=== PATIENT | male | born 1935 | race Caucasian/White ===

== ENCOUNTER 2022-07-22 08:40 | Inpatient (IN) | payer OTHER ==
[~2022-07-22] VITALS: Ht 193 cm; Wt 108.9 kg
[2022-07-22 08:40] VITALS: BP 171/89
--- NOTE | 2022-07-22 08:40 | NUR ---
PT ROMEO BROUSSARD, VIA GURNEY TO BED 12.
--- NOTE | 2022-07-22 09:05 | NUR ---
86 Y/O MALE BIBA C/O RIGHT HIP PAIN AFTER MECHANICAL FALL AT HOME, PER PT HE SLIPPED ON A STEP AND FELL, NOTED SKIN TEAR ON THE RIGHT ARM, AND FOREHEAD NKA PMH: PACEMAKER, SKIN CA Addendum: 07/22/22 at 1140 by MNURBMD PMH: Kayla MACKAY, PACEMAKER 6 YEARS, NEUROPATHY
--- NOTE | 2022-07-22 09:06 | NUR ---
PT TAKEN TO XRAY VIA C[facility]
[2022-07-22] MEDS ORDERED: APIX5TAB PO (09:07)
--- NOTE | 2022-07-22 10:00 | NUR ---
DR RUGGIERO AT BEDSIDE FOR EVAL
[2022-07-22] MEDS ORDERED: MORPHINE SULFATE 4 MG/ML SYR IVP ONE (10:15)
--- NOTE | 2022-07-22 10:36 | NUR ---
BLOOD URINE AND SWAB HANDED TO JIMENA DANCE CHOREOGRAPHER
--- NOTE | 2022-07-22 10:49 | NUR ---
PT TAKEN TO CT VIA [facility]
[2022-07-22] MEDS ORDERED: SACU1TAB PO (11:26)
[2022-07-22] MEDS ORDERED: GABA300C PO (11:26)
[2022-07-22] MEDS ORDERED: AMIO200T66 PO (11:26)
[2022-07-22] MEDS ORDERED: ACET-10509 PO (11:26)
[2022-07-22] MEDS ORDERED: CARV25TA PO (11:26)
[2022-07-22] MEDS ORDERED: CELE200C PO (11:26)
[2022-07-22 11:32] LABS: APPEARANCE,URINE CLEAR (CLEAR); BILIRUBIN,URINE NEGATIVE (NEGATIVE); BLOOD, URINE NEGATIVE (NEGATIVE); COLOR,URINE YELLOW (YELLOW); LEUKOCYTE ESTERASE ,URINE NEGATIVE (NEGATIVE); NITRITE, URINE NEGATIVE (NEGATIVE); PH,URINE 7.5 (5.0-9.0); UGLUCOSE NEGATIVE (NEGATIVE)
[2022-07-22 11:34] LABS: BASOPHILS # (AUTO) 0.1 K/uL (0.00-0.22); BASOPHILS % (AUTO) 0.6 % (0.0-2.0); EOSINOPHILS # (AUTO) 0.2 K/uL (0-0.4); EOSINOPHILS % (AUTO) 2.3 % (0.0-4.0); HEMATOCRIT 41.9 % (36-52); LYMPHOCYTES # (AUTO) 0.5 K/uL (2.0-11.5); MEAN CORPUSCULAR HEMOGLOBIN 33 pg (27-31); MEAN CORPUSCULAR HGB CONC 33 g/dL (33-37); MEAN CORPUSCULAR VOLUME 97.5 fL (80-94); MONOCYTES # (AUTO) 0.6 K/uL (0.8-1.0); NEUTROPHILS # (AUTO) 9.1 K/uL (1.8-7.7); NEUTROPHILS % (AUTO) 86.1 % (42.2-75.2); PLATELET COUNT (AUTO) 214 K/uL (140-450); RED CELL DISTRIBUTION WIDTH 14.3 % (11.6-13.7); WHITE BLOOD COUNT (AUTO) 10.6 K/uL (4.8-10.8)
[2022-07-22 11:46] LABS: ALBUMIN 3.6 g/dL (3.4-5.0); ANION GAP 16.2 (8-16); ASPARTATE AMINOTRANSFERASE 19 U/L (15-37); CARBON DIOXIDE 24.9 mmol/L (21-32); CHLORIDE 104 mmol/L (98-107); CREATININE 1.6 mg/dL (0.6-1.3); GLUCOSE 99 mg/dL (74-106); POTASSIUM 4.1 mmol/L (3.5-5.1); SODIUM SERUM 141 mmol/L (136-145); TOTAL BILIRUBIN 2.9 mg/dL (0.0-1.0); UREA NITROGEN, BLOOD 28 mg/dL (7-18)
--- NOTE | 2022-07-22 11:57 | NUR ---
PT RESTING IN BED
[2022-07-22 13:15] LABS: PROTHROMBIN TIME 11.5 secs (10.8-13.4)
[2022-07-22] MEDS ORDERED: ZOLPIDEM 5 MG TAB PO PRN (13:45)
[2022-07-22] MEDS ORDERED: hydrALAZINE 20 MG/ML VIAL IVP PRN (13:45)
[2022-07-22] MEDS ORDERED: ONDANSETRON 4 MG/2 ML VIAL IM/IVP PRN (13:45)
[2022-07-22] MEDS ORDERED: guaiFENesin DM 200/20 MG-10 ML 10 ML UDC PO PRN (13:45)
[2022-07-22] MEDS ORDERED: DOCUSATE SODIUM 100 MG GELCAP PO PRN (13:45)
[2022-07-22] MEDS ORDERED: ACETAMINOPHEN 325 MG TAB PO PRN (13:45)
--- NOTE | 2022-07-22 13:52 | NUR ---
Patient will be admitted to care of DR ECHEVERRIA. Admited to MED SURG. Will go to [id number]. Belongings list completed. Report to GIANCARLO ORTIZ.
[2022-07-22 14:07] LABS: MAGNESIUM 1.9 mg/dL (1.8-2.4); PHOSPHORUS 2.4 mg/dL (2.5-4.9)
--- NOTE | 2022-07-22 14:34 | NUR ---
RECEIVE REPORT FROM ER NURSE FOR NEW ADMITTED PATIENT WHO IS S/P FALL WITH R. HIP FRACTURE. PATIENT IS FULL CODE, WITH NKA, ALERT X 4 AND MEDICAL HX IS OBTAINED FROM EITHER ER NURSE OR PATIENT THAT PATIENT HAS HX OF NEUROPATH, AICD PLACEMENT, SKIN CANCER. IV AT LAC 20G SALINE LOCK, PATIENT IS ON 2 LITER O2 PRN VIA NC. WILL CONTINUE TO MONITOR
[2022-07-22 16:00] VITALS: BP 144/76
[2022-07-22] MEDS ORDERED: ACETAMINOPHEN EXTRA STRENGTH 500 MG TAB PO PRN (16:15)
[2022-07-22] MEDS: lisinopriL 10 MG TAB PO SCH (17:10)
--- NOTE | 2022-07-22 18:00 | NUR ---
P.T. NOTES HOLD P.T. EVAL, WILL AWAIT ORTHO CONSULT.
--- NOTE | 2022-07-22 19:35 | NUR ---
ENDORSE PATIENT TO PM SHIFT NURSE WHILE PATIENT REST IN BED, PIV LAC SALINE LOCK, PATIENT STILL NPO STATUS FOR POSSIBLE PROCEDURE
--- NOTE | 2022-07-22 19:36 | NUR ---
RECEIVED ENDORSEMENT FROM GIANCARLO ORTIZ, PATIENT WAS STABLE DURING SHIFT REPORT. PATIENT IS ASLEEP IN BED BUT EASY TO AROUSE BY CALLING HIS NAME. PATIENT WAS ABLE TO VERBALIZE WHY HE WAS IN THE HOSPITAL. NURSING GAVE EDUCATION TO WHY HE IS ON NPO STATUS. PATIENT UNDERSTOOD AND AGREED. [email or web address]
[2022-07-22 20:00] VITALS: BP 140/72
--- NOTE | 2022-07-22 20:00 | NUR ---
Patient's Plan of Care was discussed and reviewed with [employer]: smooth couch
[2022-07-22] MEDS: GABAPENTIN 300 MG CAP PO SCH (20:22)
[2022-07-22] MEDS: carvediloL 12.5 MG TAB PO SCH (20:24)
--- NOTE | 2022-07-22 21:45 | NUR ---
PATIENT NOTED IN BED ASLEEP. CHEST RISING AND FALLING WITHOUT INCIDENT. NO NOTED PAIN/DISCOMFORT AT THIS TIME. SIDE RAILS UP X 3 FOR SAFETY AND ADJUSTMENTS. CALL LIGHT WITHIN REACH. [email or web address]
[2022-07-22] MEDS: HYDROcodone/APAP 7.5/325 MG 1 TAB PO PRN (23:26)
--- NOTE | 2022-07-22 23:50 | NUR ---
PATIENT COMPLAINED OF LEG PAIN AND ORAL PRN WAS GIVEN. NO NOTED SIDE EFFECTS AT THIS TIME. NURSING WILL REVIEW IN ONE HOUR TIME. [email or web address]
--- NOTE | 2022-07-23 01:30 | NUR ---
PATIENT IN BED ASLEEP. NURSING NOTED CHEST RISING AND FALLING WITHOUT INCIDENT. NO NOTED S/S OF PAIN/DISCOMFORT AT THIS TIME. CALL LIGHT IN REACH FOR ASSISTANCE. [email or web address]
[2022-07-23 04:00] VITALS: BP 132/68
[2022-07-23] MEDS: MORPHINE SULFATE 2 MG/ML SYR IVP PRN ×2 (04:49→12:19)
[2022-07-23 05:31] LABS: BASOPHILS % (AUTO) 0.3 % (0.0-2.0); EOSINOPHILS % (AUTO) 0.4 % (0.0-4.0); HEMOGLOBIN 12.5 g/dL (12.0-18.0); LYMPHOCYTES # (AUTO) 0.6 K/uL (2.0-11.5); LYMPHOCYTES % (AUTO) 6.4 % (20.5-51.1); MEAN CORPUSCULAR HEMOGLOBIN 34 pg (27-31); MEAN CORPUSCULAR HGB CONC 34 g/dL (33-37); MEAN CORPUSCULAR VOLUME 98.8 fL (80-94); MONOCYTES % (AUTO) 10.8 % (1.7-9.3); NEUTROPHILS # (AUTO) 7.6 K/uL (1.8-7.7); NEUTROPHILS % (AUTO) 82.1 % (42.2-75.2); PLATELET COUNT (AUTO) 190 K/uL (140-450); RED BLOOD CELL COUNT(AUTO) 3.74 MIL/uL (4.20-6.10); RED CELL DISTRIBUTION WIDTH 14.5 % (11.6-13.7); WHITE BLOOD COUNT (AUTO) 9.2 K/uL (4.8-10.8)
[2022-07-23 05:47] LABS: ANION GAP 11.5 (8-16); CARBON DIOXIDE 28.9 mmol/L (21-32); CHLORIDE 105 mmol/L (98-107); CREATININE 1.5 mg/dL (0.6-1.3); GLUCOSE 114 mg/dL (74-106); POTASSIUM 4.4 mmol/L (3.5-5.1); SODIUM SERUM 141 mmol/L (136-145); UREA NITROGEN, BLOOD 29 mg/dL (7-18)
--- NOTE | 2022-07-23 05:49 | NUR ---
PATIENT WAS RELUCTANT TO MOVE TO BE CLEANED BUT HE WAS SATURATED WITH URINE. PATIENT WAS MEDICATED PRIOR TO ANY MOVEMENT AND WE WENT HIS SPEED. PATIENT TOLERATED IT MODERATELY. WASHED HIM DOWN. CHANGED THE DRAW SHEET AND DISPOSABLE CHUX. BED WAS PLACED IN [place] POSITION TO SLIDE UP WITHOUT DISTURBING HIS RIGHT LEG TOO MUCH. SIDE RAILS UP X 2 CALL LIGHT WITHIN REACH. [email or web address]
--- NOTE | 2022-07-23 06:58 | NUR ---
ENDORSED PATIENT TO GIANCARLO RN, PATIENT WAS STABLE DURING THE CHANGE OF SHIFT. [email or web address]
--- NOTE | 2022-07-23 07:46 | NUR ---
RECEIVE ENDORSEMENT FROM PM SHIFT NURSE WHILE PATIENT REST IN BED, PIV LAC 20G SALINE LOCK. NPO FOR PROCEDURE. WILL CONTINUE TO MONITOR
[2022-07-23 08:00] VITALS: BP 138/76
[2022-07-23 08:25] LABS: BARBITURATE, URINE NEGATIVE ng/ml (NEG <=200); BENZODIAZEPINE, URINE NEGATIVE ng/mL (NEG <=200); CANNABINOID, URINE NEGATIVE ng/mL (NEG <=50); COCAINE, URINE NEGATIVE ng/mL (NEG <=300); OPIATE, URINE POSITIVE ng/mL (NEG <=2000); PHENCYCLIDINE SCREEN,URINE NEGATIVE ng/mL (NEG <=25)
--- NOTE | 2022-07-23 08:37 | NUR ---
NURSE BRING CONSENT FOR CT ABDOMEN/PELVIS W/ CONTRAST TO PATIENT AND ASKING PATIENT'S SIGNATURE FOR PROCEDURE. PATIENT IS VERY FRUSTRATE FOR HAS NO FOOD AFTER ADMIT TO HOSPITAL AND WANTS HAVING PROCEDURE AFTER SURGERY DONE. AT THIS POINT OF TIME PATIENT DOESN'T WANT SIGN CONSENT FOR CT W/ CONTRAST. WILL CONTINUE TO MONITOR.
--- NOTE | 2022-07-23 09:17 | NUR ---
PATIENT HAS BEEN SCREENED AND CATEGORIZED MODERATE NUTRITION RISK. PATIENT WILL BE SEEN WITHIN 3-5 DAYS OF ADMISSION. 07/23/22-07/27/[address] REVIEWED BY [address]IN [address]
[2022-07-23] MEDS: AMIODARONE 200 MG TAB PO SCH (09:50)
[2022-07-23] MEDS: GABAPENTIN 300 MG CAP PO SCH ×2 (09:52→21:56)
[2022-07-23] MEDS: lisinopriL 10 MG TAB PO SCH (09:52)
[2022-07-23] MEDS: carvediloL 12.5 MG TAB PO SCH ×2 (09:54→21:00)
[2022-07-23] MEDS: HYDROcodone/APAP 7.5/325 MG 1 TAB PO PRN ×2 (10:09→15:20)
--- NOTE | 2022-07-23 13:00 | NUR ---
SCREEN FOR LOW RUPAL SCALE AT RISK, CONTINUE TO FOLLOW PRESSURE ULCER PREVENTION INTERVENTIONS. -TURN AND REPOSITION PATIENT Q 2H, ASSIST IF NEEDED -ASSESS AND MONITOR SKIN CONDITION DURING POSITION CHANGES -OFFLOAD BILATERAL HEELS BY PLACING PILLOWS UNDER CALVES AT ALL TIMES, UNLESS OTHERWISE CONTRAINDICATED -PRESSURE REDISTRIBUTION BY PLACING PILLOWS AND OFFLOADING SACRALCOCCYX -KEEP SKIN CLEAN AND DRY AT ALL TIMES.
--- NOTE | 2022-07-23 13:55 | NUR ---
ATTEMPTED TO SEE PATIENT FOR PHYSICAL THERAPY EVALUATION HOWEVER PATIENT AWAITING SURGERY SCHEDULED LATE AFTERNOON TODAY. WILL FOLLOW UP TOMORROW FOR EVALUATION.
[2022-07-23] MEDS ORDERED: TRANEXAMIC ACID 1,000 MG/10 ML VIAL ONE ×3 (16:54→18:54)
[2022-07-23] MEDS ORDERED: LIDOCAINE MPF 1% 20 ML ONE (16:54)
[2022-07-23] MEDS ORDERED: BUPIVACAINE MPF 0.25% 10 ML VIAL INJ ONE (16:54)
[2022-07-23] MEDS ORDERED: ceFAZolin 2,000 MG VIAL ONE (16:55)
[2022-07-23] MEDS ORDERED: fentaNYL citrate 0.05 MG/ML VIAL ONE ×2 (17:12→18:16)
[2022-07-23] MEDS ORDERED: METOCLOPRAMIDE 10 MG/2 ML INJ VIAL ONE (17:15)
[2022-07-23] MEDS ORDERED: DEXAMETHASONE 4 MG/ML VIAL ONE (17:15)
[2022-07-23] MEDS ORDERED: PROPOFOL 200 MG/20 ML VIAL IV ONE (17:16)
[2022-07-23] MEDS ORDERED: ACETAMINOPHEN 100 ML IV ONE (17:47)
[2022-07-23] MEDS ORDERED: ONDANSETRON 4 MG/2 ML VIAL ONE (18:44)
--- NOTE | 2022-07-23 19:12 | NUR ---
ENDORSE PT TO PM SHIFT NURSE WHILE PATIENT STILL IN OR FOR ORIF PROCEDURE. PIV LAC 20G; CT SCAN ABDOMEN/PELVIS W/O CONTRAST DONE BEFORE PROCEDURE.
[2022-07-23] MEDS ORDERED: HYDROmorphone 1 MG/ML AMP IVP PRN (19:30)
[2022-07-23] MEDS ORDERED: ONDANSETRON 4 MG/2 ML VIAL IVP PRN (19:30)
--- NOTE | 2022-07-23 19:50 | NUR ---
RECD. REPORT FROM OR NURSE, PT. S/P RIGHT HIP ORIF. AWAKE, ALERT, CONFUSED AND COOPERATIVE. INCISION IN THE RIGHT HIP COVERED WITH DRESSING DRY AND INTACT. RESPIRATION EVEN AND UNLABORED. REORIENTED PATIENT TO HOSPITAL SETTING. STILL REFUSING TO PUT ON HOSPITAL GOWN AND TRYING TO PULL OUT IV. VS STABLE. -BP - 100/58, HR -71, RR- 18, 02 SAT -97. DENIES PAIN 0/10.
[2022-07-23 20:00] VITALS: BP 100/58
--- NOTE | 2022-07-23 20:00 | NUR ---
Patient's Plan of Care was discussed and reviewed with JT SUE:
--- NOTE | 2022-07-23 21:00 | NUR ---
SON TEODORA CAME BACK REQUESTED TO STAY FOR A WHILE UNTIL PATIENT CALM DOWN.
--- NOTE | 2022-07-23 21:56 | NUR ---
REFUSING TO TAKE MEDICATIONS BUT SON PERSUADED PATIENT, OBEYED SON.
--- NOTE | 2022-07-23 22:50 | NUR ---
IV PULLED OUT. NEW IV LINE INSERTED BY ANGEL DUVAL AT THE LEFT AC G20.
--- NOTE | 2022-07-23 22:55 | NUR ---
INFORMED DR. MAGUIRE PT BP - 85/53, HR - 70, ASYMPTOMATIC. PATIENT IS SALINE LOCK IF WE CAN GIVE IV FLUIDS. ORDERED NS AT 80 ML/HR.
--- NOTE | 2022-07-23 23:15 | NUR ---
SLEEPING COMFORTABLY IN BED, SON LEFT FOR HOME.
[2022-07-23] MEDS ORDERED: ceFAZolin 1,000 MG VIAL ONE (23:24)
[2022-07-24] MEDS: NACL 0.9% 1,000 ML IV SCH ×2 (00:16→12:31)
--- NOTE | 2022-07-24 01:00 | NUR ---
SLEEPING COMFORTABLY IN BED. RESPIRATION EVEN AND UNLABORED.
--- NOTE | 2022-07-24 03:30 | NUR ---
WOKE UP, ASSISTED TO USE THE URINAL TO VOID, VOIDED 240 ML DARK YELLOW CLEAR URINE. WENT BACK TO SLEEP AFTER VOIDING.
[2022-07-24 04:00] VITALS: BP 116/59
[2022-07-24] MEDS ORDERED: ceFAZolin 1,000 MG VIAL ONE (05:03)
[2022-07-24] MEDS ORDERED: cephALEXin 500 MG CAP ONE (05:13)
--- NOTE | 2022-07-24 07:00 | NUR ---
CONDITION REMAIN STABLE. WILL ENDORSE TO AM SHIFT NURSE FOR CONTINUITY OF CARE.
[2022-07-24 07:21] LABS: HEMATOCRIT 31.9 % (36-52); HEMOGLOBIN 10.6 g/dL (12.0-18.0); LYMPHOCYTES # (AUTO) 0.3 K/uL (2.0-11.5); LYMPHOCYTES % (AUTO) 2.3 % (20.5-51.1); MEAN CORPUSCULAR HEMOGLOBIN 33 pg (27-31); MEAN CORPUSCULAR HGB CONC 33 g/dL (33-37); MEAN CORPUSCULAR VOLUME 99.2 fL (80-94); MONOCYTES # (AUTO) 0.8 K/uL (0.8-1.0); NEUTROPHILS # (AUTO) 11.5 K/uL (1.8-7.7); NEUTROPHILS % (AUTO) 91.7 % (42.2-75.2); PLATELET COUNT (AUTO) 178 K/uL (140-450); RED BLOOD CELL COUNT(AUTO) 3.21 MIL/uL (4.20-6.10); WHITE BLOOD COUNT (AUTO) 12.6 K/uL (4.8-10.8)
[2022-07-24 07:38] LABS: CARBON DIOXIDE 26.5 mmol/L (21-32); CHLORIDE 104 mmol/L (98-107); CREATININE 1.9 mg/dL (0.6-1.3); GLUCOSE 155 mg/dL (74-106); POTASSIUM 4.5 mmol/L (3.5-5.1); SODIUM SERUM 139 mmol/L (136-145); UREA NITROGEN, BLOOD 41 mg/dL (7-18)
[2022-07-24 08:00] VITALS: BP 104/57
[2022-07-24] MEDS: AMIODARONE 200 MG TAB PO SCH ×2 (09:00→09:47)
[2022-07-24] MEDS: lisinopriL 10 MG TAB PO SCH ×2 (09:00→09:49)
[2022-07-24] MEDS: GABAPENTIN 300 MG CAP PO SCH ×3 (09:00→20:37)
[2022-07-24] MEDS ORDERED: ERGOCALCIFEROL 50,000 IU SGL PO SCH (09:00)
[2022-07-24] MEDS: carvediloL 12.5 MG TAB PO SCH ×3 (09:00→20:44)
--- NOTE | 2022-07-24 10:10 | NUR ---
0900 MEDS: PT VERBALIZED THAT HE WILL NOT TAKE ANY MEDS UNTIL HE READS "[facility]". PT INSISTS HE ALREADY GOT HIS A.M. MEDS. MONOGRAPHS FOR ALL HIS DAY MEDS PRINTED AND GIVEN TO HIM.
--- NOTE | 2022-07-24 11:21 | NUR ---
PT REQUESTED "SOMETHING WITH ORDER NUMBERS" FOR HIS MEDS. PT GIVEN MEDICATION LIST WITH PT NAME, , AND ALLERGIES AT TOP OF PAGE. ACTIVE MEDS SHOWED MED NAME, MED FREQUENCIES, MED DOSAGES, MED DOSAGE TIMES, AND MED ROUTES.
[2022-07-24 16:00] VITALS: BP 92/42
--- NOTE | 2022-07-24 17:03 | NUR ---
PHYSICAL THERAPIST HERE TO WORK W PT. PT HAS AN ORDER FOR 30%WEIGHT BEARING FOR RIGHT LEG W FWW.
--- NOTE | 2022-07-24 19:47 | NUR ---
RECEIVED ENDORSEMENT FROM PATIENT FROM JOSEPH RN, PATIENT WAS STABLE. PATIENT ALERT AND ORIENTED X 3. PATIENT HAD MOMENTS OF CONFUSION BY STATING HE HAS THE WRONG MEDICATION. PATIENT WAS GIVEN EDUCATION REGARDING THE CURRENT MEDICATION THAT HE IS ASSIGNED AND THE INFORMATION CAN BE GIVEN TO HIS PRIMARY PHYSICIAN AT DISCHARGE. PATIENT IS SITTING UP IN BED WITH CALL LIGHT WITHIN REACH. SIDE RAILS X 3 FOR SAFETY AND REPOSITIONING. BED AT THE LOWEST LEVEL. SURGICAL SITE IS INTACT. NO COMPLAINTS OF PAIN/DISCOMFORT. NO NOTED RESPIRATORY DISTRESS AT THIS TIME. [email or web address]
[2022-07-24 20:00] VITALS: BP 99/49
--- NOTE | 2022-07-24 20:00 | NUR ---
Patient's Plan of Care was discussed and reviewed with OPERATIONS ANALYST: NOVA VALDEZ
[2022-07-24] MEDS: cephALEXin 500 MG CAP PO SCH (20:44)
[2022-07-24] MEDS ORDERED: QUEtiapine FUMARATE 25 MG TAB PO SCH (21:00)
--- NOTE | 2022-07-24 21:57 | NUR ---
PATIENT WAS NOTED KNOTTING OFF TO SLEEP. NURSING ASK TO TURN DOWN THE LIGHT FOR SLEEP. PATIENT AGREED. PATIENT CONTINUES TO DENY ANY PAIN/ DISCOMFORT AT THIS TIME. PATIENT WAS KEPT CLEAN AND DRY. PATIENT REFUSED ORAL ANTIBIOTIC. NURSING GAVE EDUCATION ON THE BENEFITS OF ANTIBIOTIC AND NOT TO STOP THEM ABRUPTLY AND PATIENT UNDERSTOOD BUT STILL DECLINED. [email or web address]
--- NOTE | 2022-07-24 22:41 | NUR ---
NO NOTED IVPB TO ENDORSE TO COVERING RN AJ ORTIZ. [email or web address]
--- NOTE | 2022-07-24 23:26 | NUR ---
PATIENT IN BED ASLEEP. CHEST NOTED RISING AND FALLING WITHOUT RESPIRATORY DISTRESS. NO NOTED S/S OF PAIN/DISCOMFORT. SIDE RIALS UP X 3 FOR SAFETY AND ADJUSTMENT. CALL LIGHT WITHIN REACH. [email or web address]
[2022-07-25] MEDS: NACL 0.9% 1,000 ML IV SCH (00:50)
--- NOTE | 2022-07-25 01:24 | NUR ---
PATIENT IN BED ASLEEP CHEST NOTED RISING AND FALLING WITHOUT INCIDENT. [email or web address]
--- NOTE | 2022-07-25 03:52 | NUR ---
PATIENT IS EASE TO AROUSE WHEN NAME IS CALLED. NO NOTED S/S OF PAIN. NO NOTED S/S OF RESPIRATORY DISTRESS. PATIENT REMAINS CLEAN AND DRY. SIDE RAILS UP X 3 FOR SAFETY AND COMFORT. BED AT LOWEST LEVEL. SEMI GOMEZ POSITION. CALL LIGHT WITHIN REACH. [email or web address]
[2022-07-25 04:00] VITALS: BP 103/55
[2022-07-25] MEDS: cephALEXin 500 MG CAP PO SCH (05:00)
--- NOTE | 2022-07-25 05:33 | NUR ---
NURSING CHECKED VITAL SIGNS FOR PRN MEDICATION BECAUSE PATIENT WILL BE CHANGED FOR GOWN AND ANY SOILED LINEN. SIDE RAILS UP X 3 FOR SAFETY. PATIENT DENIES PAIN AT THIS TIME. NURSING WILL SEEK ASSISTANCE FROM FITNESS FLOOR ATTENDANT FOR ROTATING THE PATIENT IN THE BED. CALL LIGHT WITHIN REACH. [email or web address]
[2022-07-25 06:37] LABS: BASOPHILS % (AUTO) 0.1 % (0.0-2.0); EOSINOPHILS # (AUTO) 0.2 K/uL (0-0.4); EOSINOPHILS % (AUTO) 1.9 % (0.0-4.0); HEMATOCRIT 25.4 % (36-52); HEMOGLOBIN 8.9 g/dL (12.0-18.0); LYMPHOCYTES # (AUTO) 0.4 K/uL (2.0-11.5); LYMPHOCYTES % (AUTO) 4.4 % (20.5-51.1); MEAN CORPUSCULAR HEMOGLOBIN 34 pg (27-31); MEAN CORPUSCULAR HGB CONC 35 g/dL (33-37); MONOCYTES % (AUTO) 10.6 % (1.7-9.3); NEUTROPHILS # (AUTO) 7.7 K/uL (1.8-7.7); PLATELET COUNT (AUTO) 168 K/uL (140-450); RED CELL DISTRIBUTION WIDTH 13.8 % (11.6-13.7); WHITE BLOOD COUNT (AUTO) 9.3 K/uL (4.8-10.8)
[2022-07-25 06:51] LABS: ANION GAP 12.2 (8-16); CARBON DIOXIDE 25.7 mmol/L (21-32); CHLORIDE 106 mmol/L (98-107); CREATININE 1.8 mg/dL (0.6-1.3); GLUCOSE 119 mg/dL (74-106); POTASSIUM 3.9 mmol/L (3.5-5.1); SODIUM SERUM 140 mmol/L (136-145); UREA NITROGEN, BLOOD 43 mg/dL (7-18)
--- NOTE | 2022-07-25 07:28 | NUR ---
ENDORSED PATIENT CARE TO JOSEPH RN FOR CONTINUITY OF CARE. PATIENT WAS STABLE AT THE CHANGE OF SHIFT. [email or web address]
[2022-07-25] MEDS: GABAPENTIN 300 MG CAP PO SCH (09:00)
[2022-07-25] MEDS: carvediloL 12.5 MG TAB PO SCH (09:00)
[2022-07-25] MEDS: AMIODARONE 200 MG TAB PO SCH (09:00)
[2022-07-25] MEDS ORDERED: DOCU-299 PO (10:54)
[2022-07-25] MEDS ORDERED: CEPH-588 PO (10:54)
[2022-07-25] MEDS ORDERED: QUET25TA46 PO (10:54)
--- NOTE | 2022-07-25 11:41 | NUR ---
DC PLANNING: PATIENT HAS A DC ORDER TO GO [facility] FOR PHYSICAL THERAPY. PATIENT IS ACCEPTED AT [facility] CAN GO TO ROOM 120A AWAITING FOR AUTHORIZATION. CM TO FOLLOW Addendum: 07/25/22 at 1405 by Abimbola Larry RN DC PLANNING: SPOKE WITH PT AND PT'S DAUGHTER STATED PREFERED TO GO TO #[facility] SPOKE WITH TERRI STATED NO BED AVAILABLE. PER LAM AT [facility] CAN TAKE PATIENT CAN GO TO ROOM 10A CALLED [facility] SPOKE WITH CEE NOTIFIED HER [facility] IS ACCEPTING PATIENT AND SHE WILL CREATE THE AUTH # FOR TRANSPORT AUTH# [id number] ARRANGED TRANSPORT WITH ARIEL ANIMAL TREATMENT INVESTIGATOR TIME 6 PM. CM TO FOLLOW
--- NOTE | 2022-07-25 12:30 | NUR ---
PHYSICAL THERAPY CO-SIGN The Physical Therapy Progress Notes documented by Opticianry Teacher have been reviewed. Reviewed/Co-Signed by: Aida Erazo Documentation Done by:BRITTNI ARREDONDO PTA Addendum: 07/25/22 at 1230 by Aida Erazo PT Amended: Links added.
[2022-07-25 13:26] LABS: HEMATOCRIT 27.2 % (36-52); HEMOGLOBIN 9.4 g/dL (12.0-18.0)
--- NOTE | 2022-07-25 14:21 | NUR ---
SHIFT NOTES: 1) PT'S DTR VICKY WHITMORE ([phone]) ASKED FOR CM TO CALL HER BEFORE PLACEMENT. 2) PT BROUGHT VIA CICI TO CT OF R HIP.
[2022-07-25 17:01] VITALS: BP 109/58
--- NOTE | 2022-07-25 18:03 | NUR ---
TRANSPORT TEAM ARRIVED TO P/U PT FOR TRANSFER TO [facility]ALTH [facility], ROOM 10A. ALL PT'S BELONGINGS SENT W PT. ALL PAPERWORK (INCL. TRANSFER FOLDER) SENT W PT. ALL PAPERWORK SIGNED. PT CONDITION STABLE AND IN NO APPARENT DISTRESS. PT TRANSPORTED TO TRANSFER VEHICLE W FAMILY MEMBER/FRIEND PRESENT.
[2022-07-25] MEDS ORDERED: APIX5TAB PO (18:57)
[2022-07-25] MEDS ORDERED: APIXABAN 2.5 MG TAB PO SCH (21:00)
[2022-07-30 06:08] LABS: CK-BB 0 % (0); CK-MB 0 % (0-3); CK-MM 100 % (97-100)
== END 2022-07-25 18:00 | DRG 480 ==
LOC: EDBD 08:40 → MED 08:40 → MTU 12:46
PROVIDERS: ADMIT Student in an Organized Health Care Education/Training Program; ATTEND Student in an Organized Health Care Education/Training Program
PROC: 0QS606Z Reposition Right Upper Femur with Intramedullary Internal Fixation Device, Open Approach (ICD-10-PCS; principal; 2022-07-22)
DX: S72.141A Displaced intertrochanteric fracture of right femur, initial encounter for closed fracture (principal); N17.0 Acute kidney failure with tubular necrosis; I42.8 Other cardiomyopathies; I48.91 Unspecified atrial fibrillation; E80.6 Other disorders of bilirubin metabolism; K40.90 Unilateral inguinal hernia, without obstruction or gangrene, not specified as recurrent; Z20.822 Contact with and (suspected) exposure to COVID-19; Z79.899 Other long term (current) drug therapy; Z79.01 Long term (current) use of anticoagulants; Z86.718 Personal history of other venous thrombosis and embolism
CPT/HCPCS: 36415; 71045; 72192; 73502; 73562; 76770; 80048; 80053; 80305; 81003; 82150; 82552; 83540; 83690; 83735; 84100; 85018; 85025; 85610; 85730; 87081; 93005; 96374; 97110; 97163-GP; 97530; 99285; C1713; C1769; J0690; J1100; J1644; J2001; J2270; J2405; J2704; J2765; J3010; J3490; J7060; Q0092